=== PATIENT | female | born 1990 | race Caucasian/White ===

== ENCOUNTER 2017-06-19 22:24 | Inpatient (IN) | payer OTHER ==
[~2017-06-19] VITALS: Ht 167.6 cm; Wt 64.9 kg
[2017-06-20 00:05] LABS: BASOPHIL % 0.7 % (0-2); PLATELET COUNT 195 x10^3mcL (130-400); RED CELL DISTRIBUTION WIDTH 12.3 % (11.5-14.5)
[2017-06-20 00:12] LABS: CALCIUM 8.1 mg/dL (8.5-10.1); CARBON DIOXIDE 28.6 mmol/L (21-32); CHLORIDE SERUM 107 mmol/L (98-107); CREATININE SERUM 0.8 mg/dL (0.6-1.0); GFR1 > 60 mL/min; GLUCOSE SERUM 120 mg/dL (74-106); POTASSIUM SERUM 3.4 mmol/L (3.5-5.1); SODIUM SERUM 142 mmol/L (136-145)
[2017-06-20 00:17] LABS: ALBUMIN 3.5 g/dL (3.4-5.0); ALKALINE PHOSPHATASE 48 U/L (46-116); ALT/SGPT 23 U/L (14-59); AST/SGOT 28 U/L (15-37); BILIRUBIN TOTAL 0.1 mg/dL (0.20-1.00); TOTAL PROTEIN, SERUM 6.7 g/dL (6.4-8.2)
[2017-06-20 01:15] VITALS: BP 128/75
[2017-06-20 01:24] VITALS: BP 128/75
[2017-06-20 02:40] LABS: MAGNESIUM 1.8 mg/dL (1.8-2.4); PHOSPHOROUS 3.7 mg/dL (2.5-4.9)
[2017-06-20 02:41] LABS: FREE T4 0.58 ng/dL (0.76-1.46); FREE THYROXINE INDEX 1.9 ug/dL (1.4-4.5); T4(THYROXINE) 5.1 ug/dL (4.7-13.3)
[2017-06-20 02:58] LABS: T3 TOTAL 0.85 ng/mL
[2017-06-20 05:25] VITALS: BP 117/77
[2017-06-20 06:50] LABS: BASOPHIL % 0.2 % (0-2); PLATELET COUNT 174 x10^3mcL (130-400); RED CELL DISTRIBUTION WIDTH 12.6 % (11.5-14.5)
[2017-06-20 07:06] LABS: CHLORIDE SERUM 107 mmol/L (98-107); CREATININE SERUM 0.7 mg/dL (0.6-1.0); GFR1 > 60 mL/min; GLUCOSE SERUM 103 mg/dL (74-106); POTASSIUM SERUM 4.1 mmol/L (3.5-5.1); SODIUM SERUM 144 mmol/L (136-145)
[2017-06-20 10:30] VITALS: BP 118/75
[2017-06-20 12:16] LABS: microscopic required? NO
[2017-06-20 12:27] LABS: UA SPECIFIC GRAVITY 1.015 (1.005-1.035); urine erythrocyte NEGATIVE (NEGATIVE)
[2017-06-20 12:39] LABS: AMPHETAMINE QUAL UR NONE DETECTED (NEG <=1000)
[2017-06-20 21:45] VITALS: BP 131/74
[2017-06-21 05:24] VITALS: BP 132/81
[2017-06-21 06:20] LABS: BASOPHIL % 0.2 % (0-2); PLATELET COUNT 175 x10^3mcL (130-400); RED CELL DISTRIBUTION WIDTH 12.4 % (11.5-14.5)
[2017-06-21 06:45] LABS: CALCIUM 7.9 mg/dL (8.5-10.1); CHLORIDE SERUM 104 mmol/L (98-107); CREATININE SERUM 0.8 mg/dL (0.6-1.0); GFR1 > 60 mL/min; GLUCOSE SERUM 122 mg/dL (74-106); POTASSIUM SERUM 3.7 mmol/L (3.5-5.1); SODIUM SERUM 140 mmol/L (136-145)
[2017-06-21 07:39] VITALS: BP 139/90
[2017-06-21 14:34] VITALS: BP 129/85
[2017-06-21 16:17] VITALS: BP 134/86
[2017-06-21 21:59] VITALS: BP 125/91
[2017-06-22 05:44] VITALS: BP 130/86
[2017-06-22 09:27] VITALS: BP 130/83
[2017-06-22 12:45] VITALS: BP 128/85
[2017-06-22 16:49] VITALS: BP 107/83; BP 133/88
[2017-06-22 21:56] VITALS: BP 139/95
[2017-06-23 07:20] VITALS: BP 127/93
[2017-06-23 09:37] VITALS: BP 135/99
[2017-06-23] MEDS ORDERED: KEFLEX500 M1 PO (10:05)
[2017-06-23] MEDS ORDERED: COL100 PO (11:39)
[2017-06-23] MEDS ORDERED: ACETAMINOPHEN-H1 TA1 PO (11:39)
[2017-06-23 12:09] VITALS: BP 135/99
[2017-06-23 13:25] VITALS: BP 141/87
== END 2017-06-23 14:59 | disposition home or self-care (01) | DRG 510 ==
LOC: ED 22:24 → DU 06-20 00:06
PROVIDERS: Emergency Medicine; Family Medicine; Neuromusculoskeletal Medicine, Sports Medicine; ADMIT Family Medicine
PROC: 0PSL04Z Reposition Left Ulna with Internal Fixation Device, Open Approach (ICD-10-PCS; 2017-06-20)
PROC: 0XP70YZ Removal of Other Device from Left Upper Extremity, Open Approach (ICD-10-PCS; 2017-06-20)
PROC: 0PSJ04Z Reposition Left Radius with Internal Fixation Device, Open Approach (ICD-10-PCS; principal; 2017-06-20 13:00)
DX: S52.302B Unspecified fracture of shaft of left radius, initial encounter for open fracture type I or II (principal); N17.0 Acute kidney failure with tubular necrosis; S52.202B Unspecified fracture of shaft of left ulna, initial encounter for open fracture type I or II; E83.51 Hypocalcemia; D64.9 Anemia, unspecified; E03.9 Hypothyroidism, unspecified; E78.1 Pure hyperglyceridemia; E87.6 Hypokalemia; W13.8XXA Fall from, out of or through other building or structure, initial encounter; Y93.33 Activity, BASE jumping; Y92.89 Other specified places as the place of occurrence of the external cause; Y99.8 Other external cause status
CPT/HCPCS: 76001; 83880; 84439; C1713; J0690; J1170; J2250; J2270; J2405; J2704; J2765; J3010; J3490; J7030; J7120